=== PATIENT | female | born 1980 | race Caucasian/White ===

== ENCOUNTER 2018-10-30 03:29 | Emergency (ER) | payer SELFPAY ==
--- NOTE | 2018-10-30 03:47 | EDPHYS ---
Physician Documentation [facility] Name: Abida Knox Age: 38 yrs Sex: Female : 1980 Arrival Date: 10/30/2018 Time: 03:31 Bed 19 Private MD: ED Physician Morgan Alfonso HPI: 10/30 03:43 This 38 yrs old Female presents to ER via Unassigned with complaints of rn Toothache. 03:43 The patient presents with pain. Onset: The symptoms/episode began/occurred yesterday. rn Modifying factors: The symptoms are alleviated by nothing, the symptoms are aggravated by chewing. Associated signs and symptoms: Pertinent positives: pain, Pertinent negatives: fever, inability to eat, redness in area, swelling. Severity of symptoms: At their worst the symptoms were moderate, in the emergency department the symptoms are unchanged. The patient has experienced a previous episode. Reports has cracked tooth for about 6months, pain worse for last 2 days, unable to sleep, no fever, no swelling or drainage, can't get in with dentist until Wednesday. . 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 - Social history:: Smoking status: Patient uses tobacco products, smokes one pack cigarettes per day. - Family history:: not pertinent. - Ebola Screening: : No symptoms or risks identified at this time. - Hospitalizations: : No recent hospitalization is reported. ROS: 03:43 Constitutional: Negative for fever, chills, and weight loss, Eyes: Negative for injury, rn pain, redness, and discharge, ENT: + toothache Neck: Negative for injury, pain, and swelling, Neuro: Negative for headache, weakness, numbness, tingling, and seizure. Exam: 03:43 Constitutional: This is a well developed, well nourished patient who is awake, alert, rn and in no acute distress. Head/Face: Normocephalic, atraumatic. ENT: + left upper posterior molar with chip, no swelling, no drainage, no necrosis. No facial swelling or fluctuance. Neck: Trachea midline, no thyromegaly or masses palpated, and no cervical lymphadenopathy. Supple, full range of motion without nuchal rigidity, or vertebral point tenderness. No Meningismus. Skin: Warm, dry with normal turgor. Normal color with no rashes, no lesions, and no evidence of cellulitis. Neuro: Awake and alert, GCS 15, oriented to person, place, time, and situation. Cranial nerves II-XII grossly intact. Motor strength 5/5 in all extremities. Sensory grossly intact. Cerebellar exam normal. Normal gait. Vital Signs: 03:35 BP 134 / 83; Pulse 89; Resp 18 S; Temp 97.9(O); Pulse Ox 100% on R/A; Weight 106.59 kg cc3 (R); Height 5 ft. 1 in. (154.94 cm) (R); 04:05 BP 131 / 87; Pulse 88; Resp 18 S; Pulse Ox 100% on R/A; cc3 03:35 Body Mass Index 44.40 (106.59 kg, 154.94 cm) cc3 MDM: 03:34 Patient medically screened. rn 03:43 Differential diagnosis: dental caries. Data reviewed: vital signs, nurses notes, and as rn a result, I will discharge patient. Counseling: I had a detailed discussion with the patient and/or guardian regarding: the historical points, exam findings, and any diagnostic results supporting the discharge/admit diagnosis, the need for outpatient follow up, to return to the emergency department if symptoms worsen or persist or if there are any questions or concerns that arise at home. Special discussion: I discussed with the patient/guardian in detail that at this point there is no indication for admission to the hospital. It is understood, however, that if the symptoms persist or worsen the patient needs to return immediately for re-evaluation. Based on the history and exam findings, there is no indication for further emergent testing or inpatient evaluation. I discussed with the patient/guardian the need to see a dentist for further evaluation of the symptoms. Administered Medications: 03:50 Drug: [place] 10 mg-325 mg 1 tabs Route: PO; cc3 04:05 Follow up: Response: No adverse reaction; Pain is decreased cc3 Disposition: 10/30/18 03:47 Discharged to Home. Impression: Dental caries. - Condition is Stable. - Discharge Instructions: Dental Pain. - Prescriptions for Amoxicillin 875 mg Oral Tablet - take 1 tablet by ORAL route every 12 hours for 10 days; 20 tablet. Ultram 50 mg Oral Tablet - take 1 tablet by ORAL route every 6 hours As needed; 15 tablet. - Medication Reconciliation Form, Thank You Letter, Antibiotic Education, Prescription Opioid Use form. - Follow up: Private Physician; When: As needed; Reason: Recheck today's complaints, Re-evaluation by your physician. - Problem is new. - Symptoms have improved. Signatures: Morgan Alfonso MD MD rn Cordel, Charlene cc3 Corrections: (The following items were deleted from the chart) 04:07 03:47 10/30/2018 03:47 Discharged to Home. Impression: Dental caries. Condition is cc3 Stable. Forms are Medication Reconciliation Form, Thank You Letter, Antibiotic Education, Prescription Opioid Use. Follow up: Private Physician; When: As needed; Reason: Recheck today's complaints, Re-evaluation by your physician. Problem is new. Symptoms have improved. rn
[2018-10-30] MEDS ORDERED: HYDROCODONE/APAP 10/325 TAB ONE (04:02)
--- NOTE | 2018-10-30 04:08 | ER ---
Nurse's Notes [facility] Name: Abida Knox Age: 38 yrs Sex: Female : 1980 Arrival Date: 10/30/2018 Time: 03:31 Bed 19 Private MD: Diagnosis: Dental caries Presentation: 10/30 03:35 Presenting complaint: Patient states: "my tooth broke 6 months ago and then these past cc3 few days it started aching". Transition of care: patient was not received from another setting of care. Onset of symptoms was October 30, 2018. Risk Assessment: Do you want to hurt yourself or someone else? Patient reports no desire to harm self or others. Initial Sepsis Screen: Does the patient meet any 2 criteria? No. Patient's initial sepsis screen is negative. Does the patient have a suspected source of infection? No. Patient's initial sepsis screen is negative. Care prior to arrival: None. 03:35 Method Of Arrival: Ambulatory cc3 03:35 Acuity: MILDRED 4 cc3 Triage Assessment: 03:35 General: Appears in no apparent distress. uncomfortable, Behavior is calm, cooperative, cc3 appropriate for age. 03:35 Pain: Complains of pain in teeth. EENT: Reports pain in tooth. Neuro: Level of cc3 Consciousness is awake, alert, obeys commands, Oriented to person, place, time, situation, Appropriate for age. Cardiovascular: Denies chest pain, Patient's skin is warm and dry. Respiratory: Airway is patent Respiratory effort is even, unlabored, Respiratory pattern is regular, symmetrical. GI: Abdomen is round obese. : No signs and/or symptoms were reported regarding the genitourinary system. Derm: No signs and/or symptoms reported regarding the dermatologic system. Musculoskeletal: Circulation, motion, and sensation intact. Range of motion: intact in all extremities. 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 - Social history:: Smoking status: Patient uses tobacco products, smokes one pack cigarettes per day. - Family history:: not pertinent. - Ebola Screening: : No symptoms or risks identified at this time. - Hospitalizations: : No recent hospitalization is reported. Screenin:35 Abuse screen: Denies threats or abuse. Denies injuries from another. Nutritional cc3 screening: No deficits noted. Tuberculosis screening: No symptoms or risk factors identified. Fall Risk Ambulatory Aid- None/Bed Rest/Nurse Assist (0 pts). Gait- Normal/Bed Rest/Wheelchair (0 pts) Mental Status- Oriented to own ability (0 pts). Assessment: 03:35 General: see triage assessment. cc3 04:05 Reassessment: Patient appears in no apparent distress at this time. Patient and/or cc3 family updated on plan of care and expected duration. Pain level reassessed. Patient is alert, oriented x 3, equal unlabored respirations, skin warm/dry/pink. Dr. Alfonso discharged home the patient with prescription given. No IV cannula in situ. Patient left ER vitally stable and ambulatory with her . Vital Signs: 03:35 BP 134 / 83; Pulse 89; Resp 18 S; Temp 97.9(O); Pulse Ox 100% on R/A; Weight 106.59 kg cc3 (R); Height 5 ft. 1 in. (154.94 cm) (R); 04:05 BP 131 / 87; Pulse 88; Resp 18 S; Pulse Ox 100% on R/A; cc3 03:35 Body Mass Index 44.40 (106.59 kg, 154.94 cm) cc3 ED Course: 03:31 Patient arrived in ED. ds1 03:33 Sommer Villalobos is Primary Nurse. cc3 03:33 Morgan Alfonso MD is Attending Physician. rn 03:35 Arm band placed on right wrist. Patient notified of wait time. cc3 03:35 Patient has correct armband on for positive identification. Bed in low position. Call cc3 light in reach. Side rails up X 1. Pulse ox on. NIBP on. 04:01 Triage completed. cc3 04:05 No provider procedures requiring assistance completed. Patient did not have IV access cc3 during this emergency room visit. Administered Medications: 03:50 Drug: [employer] 10 mg-325 mg 1 tabs Route: PO; cc3 04:05 Follow up: Response: No adverse reaction; Pain is decreased cc3 Outcome: 03:47 Discharge ordered by . rn 04:05 Discharged to home ambulatory, with family. cc3 04:05 Condition: stable 04:05 Discharge instructions given to patient, Instructed on discharge instructions, follow up and referral plans. medication usage, Demonstrated understanding of instructions, follow-up care, medications, Prescriptions given X 2. 04:07 Patient left the ED. cc3 Signatures: Kimberly Griffin ds1 Morgan Alfonso MD MD rn Cordel, Charlene cc3
[2018-10-30 04:12] VITALS: BP 134/83; TEMP 97.9; O2SAT 100
== END 2018-10-30 04:07 | disposition home or self-care (01) ==
LOC: ER 03:29
DX: K02.9 Dental caries, unspecified (principal); I10 Essential (primary) hypertension; C43.9 Malignant melanoma of skin, unspecified; F17.210 Nicotine dependence, cigarettes, uncomplicated
CPT/HCPCS: 99283